=== PATIENT | male | born 1955 | race Caucasian/White ===

== ENCOUNTER 2018-08-07 06:35 | Day surgery (SDC) | payer BC ==
[~2018-08-07 06:35] MED LIST: Lactated Ringers 1,000 ML IV SCH
--- NOTE | 2018-08-07 06:55 | PCM.PREANE ---
Preanesthetic Assessment - Anesthesia/Transfusion/Family Hx Anesthesia History: Prior Anesthesia Without Reaction Other Type of Anesthesia Reaction Comment: "had headache after appy" Family History of Anesthesia Reaction: No Transfusion History: No Prior Transfusion(s) Intubation History: Unknown - Review of Systems General: No Symptoms Pulmonary: No Symptoms Cardiovascular: No Symptoms Gastrointestinal: No Symptoms, Other (10 year follow up) Neurological: No Symptoms Other: Reports: None - Physical Assessment Height: 1.8 m Weight: 90.265 kg ASA Class: 2 Mental Status: Alert & Oriented x3 Airway Class: Mallampati = 2 Dentition: Reports: Normal Dentition Thyro-Mental Finger Breadths: 3 Mouth Opening Finger Breadths: 3 ROM/Head Extension: Limited/Partial Lungs: Clear to Auscultation, Normal Respiratory Effort Cardiovascular: Regular Rate, Regular Rhythm - Allergies Allergies/Adverse Reactions: Allergies Allergy/AdvReac Type Severity Reaction Status Date / Time No Known Allergies Allergy Verified 08/04/18 08:59 - Blood Blood Available: No - Anesthesia Plan Pre-Op Medication Ordered: None - Acknowledgements Anesthesia Type Planned: MAC Pt an Appropriate Candidate for the Planned Anesthesia: Yes Alternatives and Risks of Anesthesia Discussed w Pt/Guardian: Yes Pt/Guardian Understands and Agrees with Anesthesia Plan: Yes PreAnesthesia Questionnaire HEENT History: Reports: Allergic Rhinitis, Hard of Hearing, Other (See Below) Other HEENT History: gena hearing aids Cardiovascular History: Reports: None Respiratory History: Reports: None Gastrointestinal History: Reports: None Genitourinary History: Reports: None Musculoskeletal History: Reports: Arthritis (bilat. knees L>R , willl need TKR later this year), Other (See Below) (h/o hyperuricemia) Neurological History: Reports: None Psychiatric History: Reports: None Endocrine/Metabolic History: Reports: None Hematologic History: Reports: None Immunologic History: Reports: None Oncologic (Cancer) History: Reports: None Dermatologic History: Reports: None - Past Surgical History Head Surgeries/Procedures: Reports: None HEENT Surgical History: Reports: None Cardiovascular Surgical History: Reports: None Respiratory Surgical History: Reports: None GI Surgical History: Reports: Appendectomy, Colonoscopy (10 years ago - normal) Male Surgical History: Reports: Vasectomy Endocrine Surgical History: Reports: None Neurological Surgical History: Reports: None Musculoskeletal Surgical History: Reports: Other (See Below) Other Musculoskeletal Surgeries/Procedures:: hx exc of lipoma Oncologic Surgical History: Reports: None Dermatological Surgical History: Reports: None - History Comment History Comment: etoh "1x a week" - SUBSTANCE USE Smoking Status *Q: Never Smoker Recreational Drug Use History: No - HOME MEDS Home Medications: Home Meds Fluticasone Propionate [Flonase Allergy Relief] 1 - 2 spray NASBOTH DAILY PRN [History] Aspirin [Soledad Aspirin EC] 81 mg PO DAILY 08/04/18 [History] valACYclovir HCl [valACYclovir] 2 tab PO ASDIRECTED PRN 08/04/18 [History] - CURRENT (IN HOUSE) MEDS Current Meds: Current Medications Lactated Ringer's (Ringers, Lactated) 1,000 mls @ 125 mls/hr IV ASDIRECTED ODELL
[2018-08-07] MEDS ORDERED: Midazolam 1 MG/ML 2 ML SDV ONE (07:23)
[2018-08-07] MEDS ORDERED: Propofol 200 MG/20 ML SDV ONE (07:23)
[2018-08-07] MEDS ORDERED: fentaNYL 100 MCG/2 ML SDV ONE (07:23)
[2018-08-07] MEDS ORDERED: ePHEDrine 50 MG/ML SDV ONE (07:59)
[2018-08-07] MEDS ORDERED: Sodium Chloride 0.9% 2.5 ML Syringe FLUSH PRN (08:20)
[2018-08-07] MEDS ORDERED: Ondansetron 4 MG/2 ML SDV IVPUSH PRN (08:20)
[2018-08-07] MEDS ORDERED: Sodium Chloride 0.9% 10 ML Syringe FLUSH PRN (08:20)
--- NOTE | 2018-08-07 08:23 | PCM.OPNOTE ---
- General Post-Op/Procedure Note Date of Surgery/Procedure: 08/07/18 Operative Procedure(s): Colonoscopy with cold distal sigmoid polypectomy Pre Op Diagnosis: Desire for colorectal cancer screening Post-Op Diagnosis: Distal sigmoid polyp Anesthesia Technique: MAC (ASA II) Primary Surgeon: Tevin Chavez Area Loss Prevention Manager: Moncho Shah Condition: Good Free Text/Narrative:: DICTATION [id number] CPT CODE 91017
--- NOTE | 2018-08-07 08:28 | PCM.POSTAN ---
POST ANESTHESIA ASSESSMENT - MENTAL STATUS Mental Status: Alert, Oriented - VITAL SIGNS Pulse Rate: 74 SaO2: 96 Resp Rate: 16 Blood Pressure: 106/64 - RESPIRATORY Respiratory Status: Respiratory Rate WNL, Airway Patent, O2 Saturation Stable - CARDIOVASCULAR CV Status: Pulse Rate WNL, Blood Pressure Stable - GASTROINTESTINAL GI Status: No Symptoms - PAIN Pain Score: 0 - POST OP HYDRATION Hydration Status: Adequate & Stable
--- NOTE | 2018-08-07 08:48 | PCM48HPAN ---
Post Anesthesia Note - EVALUATION WITHIN 48HRS OF ANESTHETIC Vital Signs in Normal Range: Yes Patient Participated in Evaluation: Yes Respiratory Function Stable: Yes Airway Patent: Yes Cardiovascular Function Stable: Yes Hydration Status Stable: Yes Pain Control Satisfactory: Yes Nausea and Vomiting Control Satisfactory: Yes Mental Status Recovered: Yes Pulse Rate: 74 Resp Rate: 16 Blood Pressure: 106/64 - COMMENTS/OBSERVATIONS Free Text/Narrative:: no anesthesia problems
[2018-08-07 09:57] VITALS: BP 118/70
--- NOTE | 2018-08-07 13:18 | OR ---
SURGEON: Tevin Chavez M.D. DATE OF PROCEDURE: 08/07/2018 OPERATION PERFORMED: Colonoscopy with cold distal sigmoid polypectomy. HOSPITAL PHARMACY TECHNICIAN: Dr. Moore. ANESTHESIA: MAC. ASA CLASSIFICATION: II. PREOPERATIVE DIAGNOSIS: Desire for colorectal cancer screening. POSTOPERATIVE DIAGNOSIS: Distal sigmoid polyp. DESCRIPTION OF PROCEDURE: The patient was taken to the endoscopy room and positioned on the endoscopy table in the left lateral decubitus position. Time-out was called for appropriate identification of patient and procedure. Monitored anesthesia care was provided. The colonoscope was inserted into the rectum and advanced with minimal difficulty to the cecum where the colonoscope was retroflexed to visualize the ascending colon from below. The colonoscope was then straightened and slowly withdrawn. The cecum, ascending colon, hepatic flexure, transverse colon, splenic flexure, and descending colon showed no tumors, polyps, diverticula, or angiodysplastic changes. There was no evidence of inflammatory bowel disease. One polyp was encountered in the distal sigmoid colon and removed with the cold biopsy forceps. No diverticular changes were noted. The colonoscope was withdrawn to the rectum, then retroflexed to visualize the anal orifice from above. Again, no tumors or polyps were seen and there were no acute hemorrhoidal changes. The colonoscope was straightened, the rectum aspirated, and the colonoscope removed. The patient tolerated the procedure well and was taken to recovery room in stable condition. RENEA SKY /[id number]
== END 2018-08-07 09:00 | disposition home or self-care (01) ==
LOC: MW.SDS 06:35
PROVIDERS: ATTEND Surgery
DX: Z12.11 Encounter for screening for malignant neoplasm of colon (principal); D12.5 Benign neoplasm of sigmoid colon; M17.0 Bilateral primary osteoarthritis of knee; J01.90 Acute sinusitis, unspecified; E79.0 Hyperuricemia without signs of inflammatory arthritis and tophaceous disease; K11.6 Mucocele of salivary gland; Z79.82 Long term (current) use of aspirin; Z79.899 Other long term (current) drug therapy; Z86.010 Personal history of colon polyps
CPT/HCPCS: 45380; J2250; J2704; J3010; J7120

== ENCOUNTER 2023-08-23 07:13 | Day surgery (SDC) | payer MEDICARE, BC ==
[2023-08-23] MEDS ORDERED: Lidocaine 2% 5 ML SDV ONE (07:39)
[2023-08-23] MEDS ORDERED: propofoL 50 ML ONE (07:39)
[2023-08-23] MEDS: Lactated Ringers 1,000 ML IV SCH (07:43)
[2023-08-23] MEDS ORDERED: Lactated Ringers 1,000 ML IV SCH (09:00)
[2023-08-23 13:39] VITALS: BP 98/65; PULSE 67
== END 2023-08-23 09:28 | disposition home or self-care (01) ==
LOC: MW.SDS 07:13
PROVIDERS: ATTEND Surgery
DX: Z12.11 Encounter for screening for malignant neoplasm of colon (principal); K62.1 Rectal polyp; K63.5 Polyp of colon; J20.9 Acute bronchitis, unspecified; N40.1 Benign prostatic hyperplasia with lower urinary tract symptoms; R39.11 Hesitancy of micturition; R79.89 Other specified abnormal findings of blood chemistry; M17.0 Bilateral primary osteoarthritis of knee; Z96.659 Presence of unspecified artificial knee joint; Z79.899 Other long term (current) drug therapy; Z90.49 Acquired absence of other specified parts of digestive tract; Z90.89 Acquired absence of other organs; Z98.890 Other specified postprocedural states
CPT/HCPCS: 00811; 45380; 88305; J2704; J3490; J7120

== ENCOUNTER 2024-09-14 10:18 | Emergency (ER) | payer MEDICARE, BC ==
[2024-09-14] MEDS: Diphtheria,Pertussis(Acell),Tetanus Vaccine 0.5 ML Syringe IM ONE (11:56)
[2024-09-14 12:58] VITALS: BP 142/88; PULSE 72
== END 2024-09-14 12:58 | disposition home or self-care (01) ==
LOC: MW.ED 10:18
DX: S91.331A Puncture wound without foreign body, right foot, initial encounter (principal); L03.115 Cellulitis of right lower limb; Z79.2 Long term (current) use of antibiotics; Z79.891 Long term (current) use of opiate analgesic; Z90.49 Acquired absence of other specified parts of digestive tract; Z96.652 Presence of left artificial knee joint; Z75.8 Other problems related to medical facilities and other health care; Z23 Encounter for immunization; W18.41XA Slipping, tripping and stumbling without falling due to stepping on object, initial encounter
CPT/HCPCS: 73630-26-RT; 73630-RT; 90471; 90715; 99283; 99283-25

== ENCOUNTER 2024-09-20 05:47 | Emergency (ER) | payer MEDICARE, BC ==
[2024-09-20] MEDS: HYDROmorphone 0.5 MG/0.5 ML Syringe IVPUSH ONE (06:04)
[2024-09-20] MEDS: Ketorolac 30 MG/ML SDV IVPUSH ONE (06:05)
[2024-09-20 06:07] LABS: BASOPHILS ABSOLUTE AUTO 0.07 K/uL (0.00-0.20); BASOPHILS PERCENT AUTO 0.6 % (0.0-1.0); EOSINOPHILS ABSOLUTE AUTO 0.17 K/uL (0.00-0.45); EOSINOPHILS PERCENT AUTO 1.6 % (0.0-6.0); HEMATOCRIT 43.7 % (42.0-52.0); HEMOGLOBIN 15.3 g/dL (14.0-18.0); IMMATURE GRAN ABSOLUTE AUTO 0.03 K/uL (0.00-0.05); IMMATURE GRAN PERCENT AUTO 0.3 % (0.0-0.4); LYMPHOCYTES ABSOLUTE AUTO 2.04 K/uL (1.00-4.80); LYMPHOCYTES PERCENT AUTO 18.9 % (24.0-44.0); MEAN CORPUSCULAR HEMOGLOBIN 32.6 pg (28.0-32.0); MEAN CORPUSCULAR VOLUME 93.2 fL (83.0-99.0); MEAN PLATELET VOLUME 9.7 fL (9.4-12.4); MONOCYTES ABSOLUTE AUTO 1.33 K/uL (0.00-0.80); MONOCYTES PERCENT AUTO 12.3 % (0.0-8.0); NEUTROPHILS ABSOLUTE AUTO 7.16 K/uL (1.80-7.70); NEUTROPHILS PERCENT AUTO 66.3 % (41.0-71.0); PLATELET COUNT,PLT 251 K/uL (150-400); RED BLOOD CELL COUNT 4.69 M/uL (4.52-5.90)
[2024-09-20 06:33] LABS: CALCIUM 8.7 mg/dL (8.5-10.1); CARBON DIOXIDE,CO2 29.1 mmol/L (21.0-32.0); CREATININE 1.3 mg/dL (0.8-1.3); EST CRCL DRUG DOSING (CG) 52.26 mL/min; POTASSIUM,K 4.3 mmol/L (3.5-5.1)
[2024-09-20] MEDS: Iopamidol 755 MG/ML 500 ML Multipack Bottle IVPUSH ONE (07:33)
[2024-09-20 07:52] LABS: A/G RATIO 0.9 (0.9-1.6); ALBUMIN 3.6 g/dL (3.4-5.0); BILIRUBIN DIRECT 0.2 mg/dL (0.0-0.5); BILIRUBIN TOTAL 1.2 mg/dL (0.2-1.0); PROTEIN TOTAL,TP 7.4 g/dL (6.4-8.2)
[2024-09-20] MEDS: Rivaroxaban 15 MG Tab PO STA (08:43)
[2024-09-20 08:49] VITALS: BP 119/80; PULSE 75
== END 2024-09-20 08:50 | disposition home or self-care (01) ==
LOC: MW.ED 05:47
DX: I26.99 Other pulmonary embolism without acute cor pulmonale (principal); Z90.49 Acquired absence of other specified parts of digestive tract; Z79.01 Long term (current) use of anticoagulants; Z79.891 Long term (current) use of opiate analgesic
CPT/HCPCS: 36415; 71046; 71275; 80048; 80076; 82947; 84484; 85025; 93005; 96374; 96375; 99285; A9270; J1171; J1885; Q9967; 93010